=== PATIENT | female | born 1955 | race Caucasian/White ===

== ENCOUNTER 2017-12-29 05:06 | Day surgery (SDC) | payer BC, OTHER ==
[2017-12-27 17:05] VITALS: BMI 46.5
[2017-12-29] MEDS ORDERED: DEXAMETHASONE SOD PHOSPHATE 4 MG/1 ML VIAL ONE ×2 (10:41→11:40)
[2017-12-29] MEDS ORDERED: fentaNYL CITRATE 250 MCG/5 ML VIAL ONE (10:41)
[2017-12-29] MEDS ORDERED: MIDAZOLAM HCL 2 MG/2 ML SINGLE DOSE VIAL ONE ×2 (10:41→11:09)
[2017-12-29] MEDS ORDERED: LIDOCAINE HCL/PF 2% SDV 5ML VIAL ONE ×2 (10:41→11:08)
[2017-12-29] MEDS ORDERED: ONDANSETRON 4 MG/2 ML VIAL ONE (10:41)
[2017-12-29] MEDS ORDERED: ROCURONIUM BROMIDE 50 MG/5 ML VIAL ONE (10:41)
[2017-12-29] MEDS ORDERED: PROPOFOL 20 ML ONE ×3 (10:41→11:09)
[2017-12-29] MEDS ORDERED: ACETAMINOPHEN INJECTION 100 ML IVPB ONE (10:52)
[2017-12-29] MEDS ORDERED: KETOROLAC TROMETHAMINE 30 MG/1 ML VIAL ONE (12:00)
[2017-12-29] MEDS ORDERED: DESFLURANE GAS 240 ML BOTTLE IH ONE (12:04)
--- NOTE | 2017-12-29 12:16 | HP ---
History & Physical Update - History History: No Change - Physical Physical: No Change - Assessment Assessment: No Change - Plan Plan: No Change (No change in HP)
[2017-12-29] MEDS ORDERED: oxyCODONE HCL 5 MG TABLET PO PRN (12:21)
[2017-12-29] MEDS ORDERED: ONDANSETRON 4 MG/2 ML VIAL IVPUSH PRN (12:21)
--- NOTE | 2017-12-29 12:21 | HP ---
Satellite H - Chief Complaint Chief Complaint: Postmenopausal Bleeding History of Present Illness: 62 yo with PMB usg showing hyperplasia and possible polyps for. Hysteroscopic myomectomy. D &C History Source: Patient Limitations to Obtaining History: No Limitations - Past Medical History Allergies/Adverse Reactions: Allergies Allergy/AdvReac Type Severity Reaction Status Date / Time No Known Allergies Allergy Verified 12/29/17 09:13 Pulmonary: Yes: Asthma ...: No Endocrine: Yes: Hypothyroidism Additional Medical History: fibroids - Current Medications Current Medications: Home Medications Medication Instructions Recorded Levothyroxine [Synthroid -] 125 mcg PO DAILY 05/16/14 Albuterol 0.083% Nebulizer Elly 1 neb NEB QID 12/27/17 [Ventolin 0.083%] Albuterol Sulfate [Proair Hfa] 8.5 gm IH PRN 12/27/17 Budesonide/Formeterol Fumarate 1 inh PO BID 12/27/17 [SYMBICORT 160/4.5mcg -] Lisinopril [Prinivil] 10 mg PO DAILY 12/27/17 Multivitamins [Tab-A-Vit -] 1 tab PO DAILY 12/27/17 Satellite Physical Exam - Physical Examination Vital Signs: Vital Signs Period Temp Pulse Resp BP Sys/Romero Pulse Ox Last 24 Hr 98.4 F 86 20 150/85 98 General Appearance: Well Nourished, Well Developed, Alert & Oriented x3, Obese ENT: Clear Lung: Clear to auscultation Heart: Regular rate & rhythm Breasts: Soft, Non-Tender, No masses bilaterally Abdomen: Soft, No tenderness Extremities: No edema Pelvic Exam: Within normal limits External Genitalia, Within normal limits Vagina, Within normal limits Cervix, Within normal limits [place], Other Uterus (hyperplasia) Neurological: Intact, Alert, Oriented Satellite Impression/Plan - Impression/Plan Impression: Postmenopausal Bleeding. endometrial hyperplasia. r/o cervical polyps Operative Procedure: Hysteroscopic Myomectomy. Suction DC Date to be Performed: 12/29/17
[2017-12-29] MEDS ORDERED: LACTATED RINGERS SOLUTION 1,000 ML IV SCH (12:30)
--- NOTE | 2017-12-29 12:33 | OP ---
Operative Note - Note: Operative Date: 12/29/17 Pre-Operative Diagnosis: Postmenopausal bleeding Operation: Hysteroscopic myomectomy. Suction DC Findings: Cervical / endometrial polyps Post-Operative Diagnosis: Same as Pre-op Surgeon: Soumya Weaver Anesthesia: General Estimated Blood Loss (mls): 25 Operative Report Dictated: Yes
[2017-12-29 12:49] VITALS: TEMP 97.9
[2017-12-29] MEDS ORDERED: ACETAMINOPHEN 325 MG TABLET (FP) PO PRN (12:55)
[2017-12-29] MEDS ORDERED: IBUPROFEN 400 MG TABLET (FP) PO PRN (12:55)
[2017-12-29 15:46] VITALS: BP 148/66; PULSE 72
--- NOTE | 2017-12-30 12:20 | PATH ---
Surgical Pathology Report Patient Name: WALI RIVERA [facility]. Rec. #: [id number] /Age/Gender: 1955 (Age: 62) / F Account: [id number] Location: [facility] SUR[facility] Taken: 12/29/2017 Received: 12/29/2017 Reported: 12/30/2017 Physicians: Soumya Weaver M.D. Specimen(s) Received A: ENDOMETRIAL CURETTINGS B: CERVICAL POLYP Clinical History Postmenopausal bleeding Final Diagnosis A. ENDOMETRIAL CURETTINGS, DILATION AND CURETTAGE: FRAGMENTS OF DISORDERED PROLIFERATIVE ENDOMETRIUM, RARE SUPERFICIAL MYOMETRIUM, LOWER UTERINE SEGMENT, AND BENIGN CERVICAL TISSUE. B. CERVICAL POLYP, DILATION AND CURETTAGE: FRAGMENTS CERVICAL POLYP WITH FOCAL SQUAMOUS AND MICROGLANDULAR HYPERPLASIA. Electronically Signed Graciela Barrios M.D. Gross Description A. Received in formalin labeled "endometrial curettings," is a 1.5 x 1.0 x 0.2 cm aggregate of winters soft tissue fragments. The formalin is filtered and the specimen is entirely submitted in one cassette. B. Received in formalin labeled "cervical polyp," is a 1.9 x 1.4 x 0.2 cm aggregate of winters pink soft tissue fragments. The formalin is filtered and the specimen is entirely submitted in one cassette. /12/29/2017 saudi12/29/2017
--- NOTE | 2018-01-24 06:58 | OP ---
DATE OF OPERATION: 12/29/2017 PREOPERATIVE DIAGNOSIS: Endometrial polyps and cervical polyps and postmenopausal bleeding. SURGERY: Hysteroscopic myomectomy, suction dilatation and curettage, POSTOPERATIVE DIAGNOSIS: Endometrial polyps and cervical polyps and postmenopausal bleeding. SURGEON: Soumya Weaver MD ANESTHESIA: General. PROCEDURE: Patient was taken to the operating room, placed in dorsal lithotomy position, prepped and draped in the usual sterile fashion. Cervix was then dilated to accommodate the operative hysteroscope. Hysteroscope was inserted. Cervical polyps were seen as well as endometrial polyps. A hysteroscopic polypectomy was then performed and suction dilatation and curettage was performed and submitted to Pathology. Hemostasis was achieved. After all polyps were removed, all instruments were then removed. Estimated blood loss was 10 mL. Patient had tolerated the procedure well and was taken to recovery room in stable condition. SOUMYA WEAVER M.D. PILLO/[id number]
== END 2017-12-29 15:30 | disposition home or self-care (01) ==
LOC: JASU-SURG 05:06
PROVIDERS: ATTEND Obstetrics & Gynecology
PROC: 0UJD8ZZ Inspection of Uterus and Cervix, Via Natural or Artificial Opening Endoscopic (ICD-10-PCS; 2017-12-29)
PROC: 0UBC7ZX Excision of Cervix, Via Natural or Artificial Opening, Diagnostic (ICD-10-PCS; principal; 2017-12-29 10:00)
PROC: 0UB97ZX Excision of Uterus, Via Natural or Artificial Opening, Diagnostic (ICD-10-PCS; 2017-12-29 10:00)
PROC: 0UDB7ZX Extraction of Endometrium, Via Natural or Artificial Opening, Diagnostic (ICD-10-PCS; 2017-12-29 10:00)
DX: N95.0 Postmenopausal bleeding (principal); N84.0 Polyp of corpus uteri; N84.1 Polyp of cervix uteri
CPT/HCPCS: 88305-TC; 94760; J0131